=== PATIENT | female | born 2000 | race Caucasian/White ===

== ENCOUNTER 2022-02-21 11:03 | Emergency (ER) | payer OTHER, SELFPAY ==
[2022-02-21 11:22] VITALS: BP 94/61; PULSE 89; RESP 16; TEMP 36.5; O2SAT 99
--- NOTE | 2022-02-21 11:25 | ED.BACK ---
HPI - Back Pain/Injury General Chief Complaint: Back Pain/Injury Stated Complaint: Back Pain Time Seen by Provider: 02/21/22 11:26 Source: patient Mode of arrival: ambulatory Limitations: no limitations History of Present Illness HPI Narrative: 21-year-old female presented for complaint of low back pain for the last 5 days. She states at the onset she had been shoveling, was in the yard. Pain is sharp, constant, across the lower back. She is taken ibuprofen, applied heat and Biofreeze without relief. She denies associated radiating pain to the hips or legs, numbness, tingling, or weakness to lower extremities. Denies bowel or bladder changes. Pain is worse with twisting movements or standing from a seated position. Related Data Home Medications Medication Instructions Recorded Confirmed sertraline 200 mg PO DIRECTED 02/21/22 02/21/22 Allergies Allergy/AdvReac Type Severity Reaction Status Date / Time No Known Allergies Allergy Unknown Verified 02/21/22 11:09 Review of Systems Review of Systems: CONSTITUTIONAL: Denies body aches, fever, chills EYES: Denies visual changes ENT: Denies rhinorrhea, congestion CARDIOVASCULAR: Denies chest pain, palpitations, or edema. RESPIRATORY: Denies cough or dyspnea. GASTROINTESTINAL: Denies abdominal pain, nausea, vomiting, or diarrhea. SKIN: Denies rash, itching, or wounds. MUSCULOSKELETAL: Reports low back pain NEUROLOGIC: Denies headache, numbness, tingling, or weakness. PSYCH: Denies depression or anxiety. All systems reviewed & are unremarkable except as noted in HPI and below PMFSH Comments At time of signature, I have reviewed and agree with nursing past medical, surgical, social and family history unless otherwise noted. Please see nursing chart for further information. There is no relevant family history pertinent to the presenting complaint Exam Narrative: GENERAL: Well-appearing, well-nourished, and in no acute distress. HEAD: Normocephalic, atraumatic. EYES: PERRLA, conjunctivae clear NECK: Supple. CHEST: Speaks in full sentences. No respiratory distress. HEART: Regular rate and rhythm. Normal and equal peripheral pulses. EXTREMITIES: Paraspinal tenderness across the low back approximately L4-5. LEs with normal strength and sensation, normal range of motion with flexion/extension/rotation, but endorses pain with movement. No vertebral point tenderness. SKIN: Warm, dry, no rash. NEURO: Alert and oriented x3. PSYCH: Normal mood and affect Course Course Emergency Course: Patient is aware of diagnosis, understands and agrees to treatment plan. Anticipatory guidance given. Patient agrees to follow-up as directed and is aware of reasons to seek care at the emergency department. Portions of this record may have been created with voice recognition software Level of Care: Express Care Visit Vital Signs Vital signs: Vital Signs Temperature 97.7 F 02/21/22 11:22 Pulse Rate 89 02/21/22 11:22 Respiratory Rate 16 02/21/22 11:22 Blood Pressure 94/61 L 02/21/22 11:22 Pulse Oximetry 99 02/21/22 11:22 Temperature 97.7 F 02/21/22 11:22 Pulse Rate 89 02/21/22 11:22 Respiratory Rate 16 02/21/22 11:22 Blood Pressure 94/61 L 02/21/22 11:22 Pulse Oximetry 99 02/21/22 11:22 Reviewed MDM - Back Pain/Injury Differential Diagnosis Differential diagnosis: Likely lumbar radiculopathy, sciatica, strain of lumbar region and discitis Discharge Plan Discharge Clinical Impression: Low back strain Qualifiers: Encounter type: initial encounter Qualified Code(s): S39.012A - Strain of muscle, fascia and tendon of lower back, initial encounter Patient Disposition: Home, Self-Care Condition: Stable Instructions: Antibiotic Form, Low Back Strain (ED), Lower Back Exercises (ED) Additional Instructions: Rest. Avoid pushing, pulling, lifting, running or excessive walking; or anything that worsens the symptoms Tylenol 1000mg every 8 loreta
== END 2022-02-21 12:10 | disposition home or self-care (01) ==
PROVIDERS: Emergency Provider Nurse Practitioner Family; PCP Family Medicine
DX: S39.012A Strain of muscle, fascia and tendon of lower back, initial encounter (principal); X50.3XXA Overexertion from repetitive movements, initial encounter; X50.9XXA Other and unspecified overexertion or strenuous movements or postures, initial encounter; Y93.H1 Activity, digging, shoveling and raking; F41.9 Anxiety disorder, unspecified; F32.A Depression, unspecified
CPT/HCPCS: 99213; G0463

== ENCOUNTER 2024-12-10 08:53 | Outpatient (CLI) | payer OTHER, SELFPAY ==
--- NOTE | ~2024-12-10 | US_ITS ---
US breast BI complete INDICATION: Lateral breast lumps. TECHNIQUE: Dedicated complete bilateral breast ultrasound including all 4 quadrants in the subareolar locations. COMPARISON: No prior studies for comparison. FINDINGS: The breasts is/are composed of normal heterogeneous echotexture without focal solid or cyst ic mass. IMPRESSION: 1: Normal bilateral breast ultrasound. BI-RADS CATEGORY 1 - NEGATIVE Reviewed, dictated and finalized at location B. [employer]
== END 2024-12-10 08:54 | disposition home or self-care (01) ==
PROVIDERS: PCP Nurse Practitioner; Visit Provider Nurse Practitioner
DX: N63.0 Unspecified lump in unspecified breast (principal)
CPT/HCPCS: 76641

== ENCOUNTER 2025-08-03 15:43 | Outpatient (CLI) | payer OTHER, SELFPAY ==
--- NOTE | ~2025-08-03 | XR_ITS ---
XR lumbar spine 2-3V Indication: Low back pain, unspecified Comparison: None Findings: The vertebral heights are intact. No fracture or subluxation. The disc heights are intact. Soft tissues unremarkable Impression: No acute abnormality. Reviewed, dictated and finalized at location P. Impression: No acute abnormality.
== END 2025-08-03 15:44 | disposition home or self-care (01) ==
PROVIDERS: PCP Registered Nurse School; Visit Provider Registered Nurse School
DX: M54.50 Low back pain, unspecified (principal); G89.29 Other chronic pain
CPT/HCPCS: 72100